=== PATIENT | female | born 2000 | race American Indian/Alaskan Native ===

== ENCOUNTER 2022-02-07 18:51 | Emergency (ER) | payer OTHER ==
[2022-02-08 02:02] LABS: Hematocrit 27.1 % (30.3-42.9); Hemoglobin 8.6 gm/dl (10.1-14.3); Mean Corpuscular HGB Conc 32 % (30-34); Mean Corpuscular Volume 78 fl (79-97); Platelet Count 252 K/mm3 (140-440); Red Blood Count 3.47 M/mm3 (3.65-5.03); Red Cell Distribution Width 15.4 % (13.2-15.2)
[2022-02-08 02:14] LABS: Alanine Aminotransferase 12 units/L (7-56); Albumin 3.5 g/dL (3.9-5); Blood Urea Nitrogen 4 mg/dL (7-17); Calcium 8.5 mg/dL (8.4-10.2); Hemolysis Index 0
[2022-02-08 02:20] LABS: BUN/Creatinine Ratio 7
--- NOTE | 2022-02-08 03:00 | Ultrasound Report ---
ULTRASOUND OBSTETRIC INDICATION / CLINICAL INFORMATION: pelvic pain, vaginal bleeding, . TECHNIQUE: Transabdominal and Transvaginal. COMPARISON: None available. FINDINGS: There is heterogeneous cystlike area throughout the endometrial canal. There is a questionable gestat ional sac along the right side of the endometrial canal measuring 1.54 cm, which would correspond to 6 weeks and 2 days. ADNEXA: No significant abnormality. FREE FLUID: None. ADDITIONAL FINDINGS: None. IMPRESSION: Heterogeneous appearance of the endometrium with multiple cystlike areas. Findings raise possibility of a molar . Questionable gestational sac is seen with sac size corresponding to 6 weeks and 2 days. Signer Name: Alexis Ibrahim MD Signed: 02/08/2022 2:56 AM Workstation Name: [id number]
[2022-02-08 04:39] LABS: Bacteria,Urine 1+ /HPF (Negative); Bilirubin,Urine NEG (Negative); Blood,Urine LG (Negative); Color,Urine Yellow (Yellow); Protein,Urine <15 mg/dL mg/dL (Negative); Urobilinogen,Urine < 2.0 mg/dL (<2.0)
[2022-02-08 04:44] LABS: Basophils % (Manual) 0 % (0.0-1.8); Eosinophils % (Manual) 0 % (0.0-4.3); Hypochromasia 1+; Total Cells Counted 100
[2022-02-08 04:45] LABS: Ovalocytes Few; Platelet Estimate Consistent w Auto
[2022-02-08] MEDS: ACETAMINOPHEN 500 MG TAB PO ONE ×2 (05:30→07:47)
--- NOTE | 2022-02-08 05:40 | Emergency Department Report ---
ED Female HPI - General Chief complaint: Vaginal Bleeding Stated complaint: BLEEDING HEAVY Source: patient Mode of arrival: Ambulatory Limitations: No Limitations - History of Present Illness Initial comments: Patient is a A0 21-year-old -[place] female who is approximately 8 weeks gestation presents to the ED with complaint of acute onset persistent suprapubic pain with vaginal bleeding for the last 1 week. Patient states that initially the bleeding started intermittently with spotting but in the last 4 days, the pain worsened, and the bleeding has been heavy with large blood clots. Patient states that in the last 8 hours she has not been able to control the bleeding despite using heavy-duty sanitary pads. Patient denies dizziness, syncope, dysuria, urinary frequency and urgency, chest pain or shortness of breath, diarrhea, nausea and vomiting, fever and chills or low back pain. MD Complaint: vaginal bleeding, pelvic pain -: Sudden, week(s) (1) Location: suprapubic, other (Vaginal) Radiation: suprapubic Severity: severe Severity scale (0 -10): 8 Quality: cramping, sharp Consistency: constant Improves with: none Worsens with: none Are you Now?: Yes (Approximately 8 weeks gestation) Associated Symptoms: denies other symptoms, vaginal bleeding, abdominal pain (Suprapubic pain), loss of appetite. denies: vaginal discharge, nausea/vom iting, fever/chills, dysuria, hematuria, rash, seizure, shortness of breath, syncope, other - Related Data Sexually active: Yes : 1 Para: 0 A: 0 Previous Rx's Medication Instructions Recorded Last Taken Type Ondansetron [Zofran Odt] 4 mg PO Q6HR PRN #20 tab.rapdis 02/08/22 Unknown Rx cephALEXin [Keflex] 500 mg PO Q6HR #40 capsule 02/08/22 Unknown Rx oxyCODONE /ACETAMINOPHEN [Percocet 1 tab PO Q6HR PRN #12 tablet 02/08/22 Unknown Rx 5/325] Allergies Allergy/AdvReac Type Severity Reaction Status Date / Time No Known Allergies Allergy Verified 02/08/22 05:08 ED Review of Systems ROS: Stated complaint: BLEEDING HEAVY Other details as noted in HPI Constitutional: denies: chills, fever Eyes: denies: eye pain, eye discharge, vision change ENT: denies: ear pain, throat pain Respiratory: denies: cough, shortness of breath, wheezing Cardiovascular: denies: chest pain, palpitations Endocrine: no symptoms reported Gastrointestinal: abdominal pain (Suprapubic pain). denies: nausea, vomiting, diarrhea, constipation, hematemesis Genitourinary: abnormal menses (Heavy vaginal bleeding). denies: urgency, dysuria, frequency, hematuria, discharge, dyspareunia Musculoskeletal: denies: back pain, joint swelling, arthralgia Skin: denies: rash, lesions Neurological: denies: headache, weakness, paresthesias Psychiatric: denies: anxiety, depression Hematological/Lymphatic: denies: easy bleeding, easy bruising ED Past Medical Hx - Medications Home Medications: Home Medications Medication Instructions Recorded Confirmed Last Taken Type Ondansetron [Zofran Odt] 4 mg PO Q6HR PRN #20 tab.rapdis 02/08/22 Unknown Rx cephALEXin [Keflex] 500 mg PO Q6HR #40 capsule 02/08/22 Unknown Rx oxyCODONE /ACETAMINOPHEN [Percocet 1 tab PO Q6HR PRN #12 tablet 02/08/22 Unknown Rx 5/325] ED Physical Exam - General Limitations: No Limitations General appearance: alert, in no apparent distress - Head Head exam: Present: atraumatic, normocephalic, normal inspection - Eye Eye exam: Present: normal appearance, PERRL, EOMI Pupils: Present: normal accommodation - ENT ENT exam: Present: normal exam, normal orophraynx, mucous membranes moist, TM's normal bilaterally, normal external ear exam - Neck Neck exam: Present: normal inspection, full ROM. Absent: tenderness - Respiratory Respiratory exam: Present: normal lung sounds bilaterally. Absent: respiratory distress, wheezes, rales, rhonchi, chest wall tenderness, accessory muscle use, decreased breath sounds - Cardiovascular Cardiovascular Exam: Present: regular rate, normal rhythm, normal heart sounds. Absent: systolic murmur, diastolic murmur, rubs, gallop - GI/Abdominal GI/Abdominal exam: Present: soft, tenderness (Palpable suprapubic tenderness), normal bowel sounds. Absent: guarding, rebound, hyperactive bowel sounds, hypoactive bowel sounds, organomegaly - External exam: Present: normal external exam, bleeding Speculum exam: Present: vaginal bleeding, other (Heavy vaginal bleeding with large blood clots in the vaginal tract) Bi-manual exam: Present: other (Female RN stocklayer Ms. Ibarra present) - Extremities Exam Extremities exam: Present: normal inspection, full ROM, normal capillary refill - Back Exam Back exam: Present: normal inspection, full ROM. Absent: tenderness, CVA tenderness (R), CVA tenderness (L), muscle spasm, paraspinal tenderness, vertebral tenderness - Neurological Exam Neurological exam: Present: alert, oriented X3, CN II-XII intact, normal gait, reflexes normal - Psychiatric Psychiatric exam: Present: normal affect, normal mood - Skin Skin exam: Present: warm, dry, intact, normal color. Absent: rash ED Course Vital Signs 02/07/22 02/08/22 02/08/22 19:41 05:30 05:31 Temperature 98.6 F Pulse Rate 118 H Respiratory 18 20 20 Rate Blood Pressure 133/78 Blood Pressure [Right] O2 Sat by Pulse 98 Oximetry 02/08/22 02/08/22 06:00 06:11 Temperature Pulse Rate 104 H Respiratory 12 Rate Blood Pressure Blood Pressure 127/86 [Right] O2 Sat by Pulse 100 100 Oximetry - Reevaluation(s) Reevaluation #1: 02/08/22 05:54 I paged and discussed the patient's case with the [employer] physician on-call Dr. Shruthi Gibson who advised that based on the patient's lab test results and imaging reports, the patient needs to follow-up outpatient with her [employer] RO[employer] ASSEMBLER physician as soon as possible in the next 3 days for further evaluation, because the patient may be having molar . ED Medical Decision Making - Lab Data Result diagrams: 02/08/22 01:38 02/08/22 01:38 - Radiology Data Radiology results: report reviewed, image reviewed [facility] [address] [place] [address] Ultrasound Report Signed Patient: JESUS MARTINS MR#: [id number] : 2000 Acct:[id number] Age/Sex: 21 / F ADM Date: 02/07/22 Loc: ED Attending Dr: Ordering Physician: ARTHUR SHIELDS Date of Service: 02/08/22 Procedure(s): US OB transvaginal Accession Number(s): [id number] cc: ARTHUR SHIELDS ULTRASOUND OBSTETRIC INDICATION / CLINICAL INFORMATION: pelvic pain, vaginal bleeding, . TECHNIQUE: Transabdominal and Transvaginal. COMPARISON: None available. FINDINGS: There is heterogeneous cystlike area throughout the endometrial canal. There is a questionable gestational sac along the right side of the endometrial canal measuring 1.54 cm, which would correspond to 6 weeks and 2 days. ADNEXA: No significant abnormality. FREE FLUID: None. ADDITIONAL FINDINGS: None. IMPRESSION: Heterogeneous appearance of the endometrium with multiple cystlike areas. Findings raise possibility of a molar . Questionable gestational sac is seen with sac size corresponding to 6 weeks and 2 days. Signer Name: Alexis Ibrahim MD Signed: 02/08/2022 2:56 AM Workstation Name: [id number] Transcribed By: GLADYS Dictated By: Alexis Ibrahim MD Electronically Authenticated By: Alexis Ibrahim MD Signed Date/Time: 02/08/22255 DD/ 3 TD/TT: [facility] [address] [place] [address] Ultrasound Report Signed Patient: JESUS MARTINS MR#: [id number] : 2000 Acct:[id number] Age/Sex: 21 / F ADM Date: 02/07/22 Loc: ED Attending Dr: Ordering Physician: ARTHUR SHIELDS Date of Service: 02/08/22 Procedure(s): US OB <= 14 weeks fetus Accession Number(s): [id number] cc: ARTHUR SHIELDS ULTRASOUND OBSTETRIC INDICATION / CLINICAL INFORMATION: pelvic pain, vaginal bleeding, . TECHNIQUE: Transabdominal and Transvaginal. COMPARISON: None available. FINDINGS: There is heterogeneous cystlike area throughout the endometrial canal. There is a questionable gestational sac along the right side of the endometrial canal measuring 1.54 cm, which would correspond to 6 weeks and 2 days. ADNEXA: No significant abnormality. FREE FLUID: None. ADDITIONAL FINDINGS: None. IMPRESSION: Heterogeneous appearance of the endometrium with multiple cystlike areas. Findings raise possibility of a molar . Questionable gestational sac is seen with sac size corresponding to 6 weeks and 2 days. Signer Name: Alexis Ibrahim MD Signed: 02/08/2022 2:56 AM Workstation Name: [id number] Transcribed By: GLADYS Dictated By: Alexis Ibrahim MD Electronically Authenticated By: Alexis Ibrahim MD Signed Date/Time: 02/08/22255 DD/ 3 TD/TT: - Medical Decision Making This is a A0 21-year-old -[place] female who is approximately 8 weeks gestation presents to the ED with complaint of acute onset persistent suprapubic pain with vaginal bleeding for the last 1 week. Patient states that initially the bleeding started intermittently with spotting but in the last 4 days, the pain worsened, and the bleeding has been heavy with large blood clots. Patient states that in the last 8 hours she has not been able to control the bleeding despite using heavy-duty sanitary pads. In the ED, patient is alert and oriented x3 and is not in any distress. Patient however appears to be in significant pain, crying during the physical exam. Patient was treated for pain in the ED. Lab test results were reviewed and showed acute leukocytosis of 21,200, hemoglobin 8.6, hematocrit of 27.1 and hCG quant of [id number], and urinalysis that showed significant urinary tract infection. Transvaginal ultrasound showed heterogeneous appearance of the endometrium with multiple cystlike areas. Findings raise possibility of a molar . Questionable gestational sac is seen with sac size corresponding to 6 weeks and 2 days. Patient was treated in the ED for pain and also received Rocephin 1 g IV x1 as well as normal saline IV fluids. Patient case was discussed with the [employer]BLER physician on-call Dr. Gibson who advised that the patient may be discharged home on antibiotics to follow-up with her [employer] RO[employer] ASSEMBLER physician in the next 3 to 5 days for further reevaluation. On reevaluation, patient's pain is well controlled medication. Patient was discharged home on medications for pain and antibiotics and advised to strictly follow-up with her [employer]BLER physician for further evaluation. Patient advised return to the ED immediately if symptoms get worse. - Differential Diagnosis Threatened miscarriage; ectopic ; UTI; subch bleed; ovarian cyst Critical care attestation.: If time is entered above; I have spent that time in minutes in the direct care of this critically ill patient, excluding procedure time. ED Disposition Clinical Impression: Threatened miscarriage in early , Abdominal pain during in first trimester, Vaginal bleeding in patient after first trimester, Acute urinary tract infection Disposition: HOME / SELF CARE / HOMELESS Is pt being admited?: No Does the pt Need Aspirin: No Condition: Stable Instructions: Abdominal Pain During , [id number], Urinary Tract Infection, Adult, [id number], Threatened Miscarriage, [id number], Vaginal Bleeding During , First Trimester, [id number] Additional Instructions: All lab test results were reviewed, it showed urinary tract infection. Transvaginal ultrasound showed heterogeneous appearance of the endometrium with multiple cystlike areas. Findings raise possibility of a molar . Questionable gestational sac is seen with sac size corresponding to 6 weeks and 2 days. Therefore maintain a complete pelvic rest, drink plenty of fluids, follow-up with your [employer] ROOM ASSEMBLER physician in 3 to 5 days for reevaluation. Return to the ED immediately if symptoms get worse. Prescriptions: cephALEXin [Keflex] 500 mg PO Q6HR #40 capsule oxyCODONE /ACETAMINOPHEN [Percocet 5/325] 1 tab PO Q6HR PRN #12 tablet PRN Reason: Pain Ondansetron [Zofran Odt] 4 mg PO Q6HR PRN #20 tab.rapdis PRN Reason: Nausea Referrals: SKYLAR GUZMAN MD [Staff Physician] - 3-5 Days Forms: Work/School Release Form(ED) Time of Disposition: 05:50 Print Language: BENGALI
[2022-02-08] MEDS ORDERED: HYDROmorphone 1 MG/1 ML INJ IV ONE (05:54)
[2022-02-08] MEDS ORDERED: ONDANSETRON 4 MG/2 ML INJ IV ONE (05:54)
[2022-02-08] MEDS ORDERED: cefTRIAXone/NS 1 GM/50 ML 1 GM/50 ML BAG IV ONE (05:54)
[2022-02-08 06:12] VITALS: BP 127/86
== END 2022-02-08 06:30 | disposition home or self-care (01) ==
LOC: ED 18:51
DX: O20.0 Threatened abortion (principal); O23.41 Unspecified infection of urinary tract in pregnancy, first trimester; N39.0 Urinary tract infection, site not specified; Z3A.08 8 weeks gestation of pregnancy; Z79.899 Other long term (current) drug therapy
CPT/HCPCS: 36415; 76801; 76817; 80053; 81001; 83690; 84702; 85007; 85025; 86900; 86901; 96365; 96366; 96375; 99284; J0696; J1170; J2405